=== PATIENT | female | born 1940 | race Caucasian/White ===

== ENCOUNTER 2017-12-21 07:25 | Outpatient (RCR) | payer OTHER, SELFPAY ==
[2017-12-27] MEDS: Normal Saline Flush 10 ML SYR IVP (09:15)
[2017-12-27 09:32] LABS: Abs Immature Grans 0.01 k/cumm (0.0-0.09); Absolute Basophil Count 0.02 k/cumm (0.0-0.2); Absolute Eosinophil Count 0.09 k/cumm (0.0-0.7); Absolute Lymphocyte Count 0.23 k/cumm (1.2-3.4); Absolute Monocyte Count 0.43 k/cumm (0.11-0.7); Absolute Neutrophil Count 1.71 k/cumm (1.2-6.7); Basophils % 0.8; Eosinophils % 3.6; HCT 30.9 % (36.0-46.0); HGB 10.8 g/dL (12.0-15.5); Immature Grans % 0.4; Lymphocytes % 9.2; Mean Corpuscular Hemoglobin 33.5 pg (27.0-33.0); Mean Platelet Volume 11.3 fL (8.0-11.0); Monocytes % 17.3; Neutrophils % 68.7; Platelet Count 153 x1000/uL (130-400); RBC 3.22 m/cumm (4.00-5.20); RBC Distribution Width 17.6 % (11.7-14.6); White Blood Cell Count 2.49 k/cumm (4.4-10.8)
[2017-12-27] MEDS: Heparin 500 UNITS/5 ML SYRINGE IV (09:43)
[2017-12-27 09:46] LABS: ALT 41 U/L (12-78); AST 41 U/L (15-37); Albumin 2.9 g/dL (3.4-5.0); Alkaline Phosphatase 130 U/L (46-116); Anion Gap 12.3 mmol/L (3-11); BUN 15 mg/dL (7-18); Bilirubin, Total 0.4 mg/dL (0.2-1.0); CO2 23.7 mmol/L (21.0-32.0); CREATININE 1.19 mg/dL (0.55-1.02); Calcium 8.2 mg/dL (8.5-10.1); Chloride 106 mmol/L (98-107); Estimated GFR 43.98 (mL/min/1.73m2); Glucose 145 mg/dL (70-100); Potassium 3.3 mmol/L (3.5-5.1); Sodium 142 mmol/L (136-145); Total Protein 5.8 g/dL (6.4-8.2)
[2017-12-28 11:01] LABS: CA 19-9 32 U/mL (<35)
[2018-01-04] MEDS: Heparin 500 UNITS/5 ML SYRINGE IV (07:20)
[2018-01-04] MEDS: Normal Saline Flush 10 ML SYR IVP (07:25)
[2018-01-04 07:50] LABS: Abs Immature Grans 0.02 k/cumm (0.0-0.09); Absolute Basophil Count 0.01 k/cumm (0.0-0.2); Absolute Lymphocyte Count 0.64 k/cumm (1.2-3.4); Absolute Monocyte Count 0.49 k/cumm (0.11-0.7); Absolute Neutrophil Count 1.68 k/cumm (1.2-6.7); Basophils % 0.3; Eosinophils % 3.4; HCT 33.3 % (36.0-46.0); HGB 11.2 g/dL (12.0-15.5); Immature Grans % 0.7; Lymphocytes % 21.8; Mean Corp. HGB Concentration 33.6 g/dL (32.0-36.0); Mean Corpuscular Hemoglobin 32.5 pg (27.0-33.0); Mean Corpuscular Volume 96.5 fL (80-95); Mean Platelet Volume 10.9 fL (8.0-11.0); Monocytes % 16.7; Neutrophils % 57.1; Platelet Count 155 x1000/uL (130-400); RBC 3.45 m/cumm (4.00-5.20); RBC Distribution Width 17.1 % (11.7-14.6); White Blood Cell Count 2.94 k/cumm (4.4-10.8)
[2018-01-04 08:05] LABS: ALT 76 U/L (12-78); AST 87 U/L (15-37); Albumin 2.9 g/dL (3.4-5.0); Alkaline Phosphatase 190 U/L (46-116); Anion Gap 9.7 mmol/L (3-11); BUN 21 mg/dL (7-18); Bilirubin, Total 0.4 mg/dL (0.2-1.0); CO2 25.3 mmol/L (21.0-32.0); CREATININE 0.88 mg/dL (0.55-1.02); Calcium 8.7 mg/dL (8.5-10.1); Chloride 105 mmol/L (98-107); Glucose 122 mg/dL (70-100); Potassium 4.1 mmol/L (3.5-5.1); Sodium 140 mmol/L (136-145); Total Protein 5.9 g/dL (6.4-8.2)
[2018-01-07 11:37] LABS: CA 19-9 43 U/mL (<35)
== END 2018-01-18 ==
LOC: INF 12-27 02:30
PROVIDERS: Nurse Practitioner Adult Health; PCP General Practice; Visit Provider Internal Medicine Hematology & Oncology
DX: C25.0 Malignant neoplasm of head of pancreas (principal); Z45.2 Encounter for adjustment and management of vascular access device
CPT/HCPCS: 36591; 80053; 85025; 86301

== ENCOUNTER 2018-04-18 13:29 | Outpatient (RCR) | payer OTHER, SELFPAY ==
[2018-04-18 14:22] LABS: Abs Immature Grans 0.02 k/cumm (0.0-0.09); Absolute Basophil Count 0.01 k/cumm (0.0-0.2); Absolute Eosinophil Count 0.03 k/cumm (0.0-0.7); Absolute Lymphocyte Count 0.96 k/cumm (1.2-3.4); Absolute Neutrophil Count 4.36 k/cumm (1.2-6.7); Basophils % 0.2; Eosinophils % 0.5; HCT 33.5 % (36.0-46.0); HGB 11.4 g/dL (12.0-15.5); Immature Grans % 0.3; Lymphocytes % 16.6; Mean Corpuscular Hemoglobin 31.1 pg (27.0-33.0); Mean Corpuscular Volume 91.3 fL (80-95); Mean Platelet Volume 11.8 fL (8.0-11.0); Monocytes % 6.9; Neutrophils % 75.5; Platelet Count 266 x1000/uL (130-400); RBC 3.67 m/cumm (4.00-5.20); RBC Distribution Width 13.8 % (11.7-14.6); White Blood Cell Count 5.78 k/cumm (4.4-10.8)
[2018-04-18 14:35] LABS: ALT 149 U/L (12-78); AST 164 U/L (15-37); Albumin 2.5 g/dL (3.4-5.0); Alkaline Phosphatase 149 U/L (46-116); Anion Gap 11.9 mmol/L (3-11); BUN 15 mg/dL (7-18); Bilirubin, Total 0.5 mg/dL (0.2-1.0); CO2 24.1 mmol/L (21.0-32.0); CREATININE 1.04 mg/dL (0.55-1.02); Calcium 8.5 mg/dL (8.5-10.1); Chloride 104 mmol/L (98-107); Estimated GFR 51.38 (mL/min/1.73m2); Glucose 157 mg/dL (70-100); Sodium 140 mmol/L (136-145); Total Protein 5.8 g/dL (6.4-8.2)
[2018-04-18 14:43] LABS: Potassium 2.9 mmol/L (3.5-5.1)
[2018-04-18] MEDS: Normal Saline Flush 10 ML SYR IVP (14:43)
[2018-04-18] MEDS: Heparin 500 UNITS/5 ML SYRINGE IV (14:44)
[2018-04-19 10:39] LABS: CA 19-9 27 U/mL (<35)
== END 2018-04-19 23:59 | disposition home or self-care (01) ==
LOC: INF 13:29
PROVIDERS: PCP General Practice; Visit Provider Internal Medicine Hematology & Oncology
DX: C25.0 Malignant neoplasm of head of pancreas (principal); Z45.2 Encounter for adjustment and management of vascular access device
CPT/HCPCS: 36591; 80053; 85025; 86301

== ENCOUNTER 2018-05-17 01:38 | Outpatient (RCR) | payer OTHER, SELFPAY ==
[2018-05-17] MEDS: Normal Saline Flush 10 ML SYR IVP (10:57)
[2018-05-17] MEDS: Heparin 500 UNITS/5 ML SYRINGE IV (10:57)
[2018-05-17 11:15] LABS: Abs Immature Grans 0.04 k/cumm (0.0-0.09); Absolute Basophil Count 0.02 k/cumm (0.0-0.2); Absolute Eosinophil Count 0.05 k/cumm (0.0-0.7); Absolute Lymphocyte Count 1.04 k/cumm (1.2-3.4); Absolute Neutrophil Count 6.71 k/cumm (1.2-6.7); Basophils % 0.2; Eosinophils % 0.6; HCT 35.8 % (36.0-46.0); HGB 11.8 g/dL (12.0-15.5); Immature Grans % 0.5; Lymphocytes % 12.3; Mean Corpuscular Hemoglobin 30.2 pg (27.0-33.0); Mean Corpuscular Volume 91.6 fL (80-95); Mean Platelet Volume 11.8 fL (8.0-11.0); Monocytes % 7.1; Neutrophils % 79.3; RBC 3.91 m/cumm (4.00-5.20); White Blood Cell Count 8.46 k/cumm (4.4-10.8)
[2018-05-17 11:34] LABS: ALT 40 U/L (12-78); AST 62 U/L (15-37); Albumin 2.7 g/dL (3.4-5.0); Alkaline Phosphatase 96 U/L (46-116); Anion Gap 11.7 mmol/L (3-11); BUN 18 mg/dL (7-18); Bilirubin, Total 0.5 mg/dL (0.2-1.0); CO2 21.3 mmol/L (21.0-32.0); CREATININE 1.14 mg/dL (0.55-1.02); Calcium 8.5 mg/dL (8.5-10.1); Chloride 106 mmol/L (98-107); Estimated GFR 46.22 (mL/min/1.73m2); Glucose 159 mg/dL (70-100); Potassium 3.6 mmol/L (3.5-5.1); Sodium 139 mmol/L (136-145); Total Protein 5.8 g/dL (6.4-8.2)
[2018-05-17 11:38] LABS: Iron 81 ug/dL (50-175); Total Iron Binding Capacity 132 ug/dL (250-450); Transferrin Sat 61 % (15-50)
[2018-05-17 12:37] LABS: Vitamin B12 612 pg/mL (193-986)
[2018-05-17 12:38] LABS: Ferritin > 1000 ng/mL (8-388)
[2018-05-21 03:20] LABS: Vitamin E, Serum 8.8 mg/L (5.5 - 17.0)
[2018-05-22 10:31] LABS: Free Retinol (Vitamin A) 28.7 mcg/dL (32.5-78.0)
== END 2018-05-20 23:59 | disposition home or self-care (01) ==
LOC: INF 01:38
PROVIDERS: Internal Medicine Hematology & Oncology; PCP General Practice; Visit Provider Nurse Practitioner Adult Health
DX: C25.0 Malignant neoplasm of head of pancreas (principal); Z45.2 Encounter for adjustment and management of vascular access device
CPT/HCPCS: 36591; 80053; 82306; 82607; 82728; 83540; 83550; 84446; 84590; 85025

== ENCOUNTER 2018-06-28 00:56 | Outpatient (RCR) | payer OTHER, SELFPAY ==
[2018-06-28] MEDS: Normal Saline Flush 10 ML SYR IVP (09:31)
[2018-06-28] MEDS: Heparin 500 UNITS/5 ML SYRINGE IV (09:38)
[2018-06-28 09:59] LABS: Abs Immature Grans 0.01 k/cumm (0.0-0.09); Absolute Basophil Count 0.01 k/cumm (0.0-0.2); Absolute Eosinophil Count 0.03 k/cumm (0.0-0.7); Absolute Lymphocyte Count 0.67 k/cumm (1.2-3.4); Absolute Neutrophil Count 4.22 k/cumm (1.2-6.7); Basophils % 0.2; Eosinophils % 0.6; HCT 31.2 % (36.0-46.0); HGB 10.3 g/dL (12.0-15.5); Immature Grans % 0.2; Lymphocytes % 12.3; Mean Corpuscular Hemoglobin 31.5 pg (27.0-33.0); Mean Corpuscular Volume 95.4 fL (80-95); Mean Platelet Volume 12.1 fL (8.0-11.0); Monocytes % 9.2; Neutrophils % 77.5; Platelet Count 187 x1000/uL (130-400); RBC 3.27 m/cumm (4.00-5.20); RBC Distribution Width 15.4 % (11.7-14.6); White Blood Cell Count 5.44 k/cumm (4.4-10.8)
[2018-06-28 10:21] LABS: ALT 43 U/L (12-78); AST 71 U/L (15-37); Albumin 2.4 g/dL (3.4-5.0); Alkaline Phosphatase 112 U/L (46-116); Anion Gap 8.5 mmol/L (3-11); BUN 13 mg/dL (7-18); Bilirubin, Total 0.6 mg/dL (0.2-1.0); CO2 25.5 mmol/L (21.0-32.0); CREATININE 0.93 mg/dL (0.55-1.02); Chloride 107 mmol/L (98-107); Estimated GFR 58.46 (mL/min/1.73m2); Glucose 142 mg/dL (70-100); Potassium 3.4 mmol/L (3.5-5.1); Sodium 141 mmol/L (136-145); Total Protein 5.4 g/dL (6.4-8.2)
[2018-07-01 10:41] LABS: CA 19-9 43 U/mL (<35)
== END 2018-07-18 23:59 | disposition home or self-care (01) ==
LOC: INF 00:56
PROVIDERS: PCP General Practice; Visit Provider Internal Medicine Hematology & Oncology
DX: C25.0 Malignant neoplasm of head of pancreas (principal); Z45.2 Encounter for adjustment and management of vascular access device
CPT/HCPCS: 36591; 80053; 85025; 86301

== ENCOUNTER 2018-07-19 00:44 | Outpatient (RCR) | payer OTHER, SELFPAY ==
[2018-07-19] MEDS: Normal Saline Flush 10 ML SYR IVP (12:39)
[2018-07-19] MEDS: Heparin 500 UNITS/5 ML SYRINGE IV (12:40)
[2018-07-19 12:46] LABS: Abs Immature Grans 0.03 k/cumm (0.0-0.09); Absolute Basophil Count 0.01 k/cumm (0.0-0.2); Absolute Eosinophil Count 0.03 k/cumm (0.0-0.7); Absolute Lymphocyte Count 0.54 k/cumm (1.2-3.4); Absolute Monocyte Count 0.49 k/cumm (0.11-0.7); Absolute Neutrophil Count 5.25 k/cumm (1.2-6.7); Basophils % 0.2; Eosinophils % 0.5; HCT 31.7 % (36.0-46.0); HGB 10.6 g/dL (12.0-15.5); Immature Grans % 0.5; Lymphocytes % 8.5; Mean Corp. HGB Concentration 33.4 g/dL (32.0-36.0); Mean Corpuscular Hemoglobin 32.1 pg (27.0-33.0); Mean Corpuscular Volume 96.1 fL (80-95); Mean Platelet Volume 11.7 fL (8.0-11.0); Monocytes % 7.7; Neutrophils % 82.6; Platelet Count 166 x1000/uL (130-400); White Blood Cell Count 6.35 k/cumm (4.4-10.8)
[2018-07-19 13:08] LABS: ALT 76 U/L (12-78); AST 83 U/L (15-37); Albumin 2.4 g/dL (3.4-5.0); Alkaline Phosphatase 109 U/L (46-116); Anion Gap 8.9 mmol/L (3-11); BUN 22 mg/dL (7-18); Bilirubin, Total 0.4 mg/dL (0.2-1.0); CO2 23.1 mmol/L (21.0-32.0); CREATININE 0.69 mg/dL (0.55-1.02); Calcium 8.4 mg/dL (8.5-10.1); Chloride 108 mmol/L (98-107); Glucose 155 mg/dL (70-100); Potassium 4.3 mmol/L (3.5-5.1); Sodium 140 mmol/L (136-145); Total Protein 5.6 g/dL (6.4-8.2)
[2018-07-22 12:46] LABS: CA 19-9 29 U/mL (<35)
== END 2018-08-18 23:59 | disposition home or self-care (01) ==
LOC: INF 00:44
PROVIDERS: PCP General Practice; Visit Provider Internal Medicine Hematology & Oncology
DX: C25.0 Malignant neoplasm of head of pancreas (principal); Z45.2 Encounter for adjustment and management of vascular access device
CPT/HCPCS: 36591; 80053; 85025; 86301

== ENCOUNTER 2018-10-04 01:50 | Outpatient (RCR) | payer OTHER, SELFPAY ==
[2018-10-04] MEDS: Heparin 500 UNITS/5 ML SYRINGE IV (12:08)
[2018-10-04] MEDS: Normal Saline Flush 10 ML SYR IVP (12:09)
[2018-10-04 12:20] LABS: Abs Immature Grans 0.01 k/cumm (0.0-0.09); Absolute Basophil Count 0.02 k/cumm (0.0-0.2); Absolute Eosinophil Count 0.09 k/cumm (0.0-0.7); Absolute Lymphocyte Count 0.84 k/cumm (1.2-3.4); Absolute Monocyte Count 0.41 k/cumm (0.11-0.7); Absolute Neutrophil Count 3.08 k/cumm (1.2-6.7); Basophils % 0.4; HCT 31.8 % (36.0-46.0); HGB 10.6 g/dL (12.0-15.5); Immature Grans % 0.2; Lymphocytes % 18.9; Mean Corp. HGB Concentration 33.3 g/dL (32.0-36.0); Mean Corpuscular Hemoglobin 31.6 pg (27.0-33.0); Mean Corpuscular Volume 94.9 fL (80-95); Mean Platelet Volume 11.1 fL (8.0-11.0); Monocytes % 9.2; Neutrophils % 69.3; Platelet Count 186 x1000/uL (130-400); RBC 3.35 m/cumm (4.00-5.20); RBC Distribution Width 13.4 % (11.7-14.6); White Blood Cell Count 4.45 k/cumm (4.4-10.8)
[2018-10-04 12:40] LABS: ALT 30 U/L (12-78); AST 31 U/L (15-37); Albumin 2.8 g/dL (3.4-5.0); Alkaline Phosphatase 101 U/L (46-116); Anion Gap 11.7 mmol/L (3-11); BUN 15 mg/dL (7-18); Bilirubin, Total 0.2 mg/dL (0.2-1.0); CO2 24.3 mmol/L (21.0-32.0); CREATININE 0.77 mg/dL (0.55-1.02); Calcium 8.5 mg/dL (8.5-10.1); Chloride 105 mmol/L (98-107); Glucose 151 mg/dL (70-100); Potassium 3.6 mmol/L (3.5-5.1); Sodium 141 mmol/L (136-145); Total Protein 6.1 g/dL (6.4-8.2)
[2018-10-07 12:04] LABS: CA 19-9 34 U/mL (<35)
== END 2018-10-18 23:59 | disposition home or self-care (01) ==
LOC: INF 01:50
PROVIDERS: PCP General Practice; Visit Provider Internal Medicine Hematology & Oncology
DX: C25.0 Malignant neoplasm of head of pancreas (principal); Z45.2 Encounter for adjustment and management of vascular access device
CPT/HCPCS: 36591; 80053; 85025; 86301

== ENCOUNTER 2019-02-28 01:42 | Outpatient (RCR) | payer OTHER, SELFPAY ==
[2019-02-28] MEDS: Normal Saline Flush 10 ML SYR IVP (11:50)
[2019-02-28] MEDS: Heparin 500 UNITS/5 ML SYRINGE IV (11:50)
[2019-02-28 12:12] LABS: Abs Immature Grans 0.01 k/cumm (0.0-0.09); Absolute Basophil Count 0.02 k/cumm (0.0-0.2); Absolute Eosinophil Count 0.26 k/cumm (0.0-0.7); Absolute Lymphocyte Count 0.99 k/cumm (1.2-3.4); Absolute Neutrophil Count 3.68 k/cumm (1.2-6.7); Basophils % 0.4; Eosinophils % 4.7; HCT 35.6 % (36.0-46.0); HGB 12.1 g/dL (12.0-15.5); Immature Grans % 0.2; Lymphocytes % 17.8; Mean Corpuscular Hemoglobin 30.9 pg (27.0-33.0); Mean Platelet Volume 10.1 fL (8.0-11.0); Monocytes % 10.8; Neutrophils % 66.1; Platelet Count 261 x1000/uL (130-400); RBC 3.91 m/cumm (4.00-5.20); RBC Distribution Width 13.7 % (11.7-14.6); White Blood Cell Count 5.56 k/cumm (4.4-10.8)
[2019-02-28 12:25] LABS: ALT 31 U/L (14-59); AST 29 U/L (15-37); Albumin 3.5 g/dL (3.4-5.0); Alkaline Phosphatase 115 U/L (46-116); Anion Gap 13.1 mmol/L (3-11); BUN 34 mg/dL (7-18); Bilirubin, Total 0.3 mg/dL (0.2-1.0); CO2 19.9 mmol/L (21.0-32.0); CREATININE 1.09 mg/dL (0.55-1.02); Chloride 107 mmol/L (98-107); Estimated GFR 48.55 (mL/min/1.73m2); Glucose 93 mg/dL (70-100); Potassium 3.9 mmol/L (3.5-5.1); Sodium 140 mmol/L (136-145); Total Protein 7.4 g/dL (6.4-8.2)
[2019-03-03 15:07] LABS: CA 19-9 23 U/mL (<35)
== END 2019-03-20 23:59 | disposition home or self-care (01) ==
LOC: INF 01:42
PROVIDERS: PCP General Practice; Visit Provider Internal Medicine Hematology & Oncology
DX: C25.0 Malignant neoplasm of head of pancreas (principal); Z45.2 Encounter for adjustment and management of vascular access device
CPT/HCPCS: 36591; 80053; 85025; 86301

== ENCOUNTER 2019-04-11 11:45 | Outpatient (RCR) | payer OTHER, SELFPAY ==
[2019-04-11] MEDS: Normal Saline Flush 10 ML SYR 30 ML IVP (15:45)
[2019-04-11] MEDS: Heparin 500 UNITS/5 ML SYRINGE IVP (15:45)
== END 2019-04-19 23:59 | disposition home or self-care (01) ==
LOC: INF 11:45
PROVIDERS: PCP General Practice; Visit Provider Internal Medicine Hematology & Oncology
DX: Z45.2 Encounter for adjustment and management of vascular access device (principal)
CPT/HCPCS: 96523

== ENCOUNTER 2019-06-06 02:35 | Outpatient (RCR) | payer OTHER, SELFPAY ==
[2019-06-06] MEDS: Normal Saline Flush 10 ML SYR IVP (14:33)
[2019-06-06] MEDS: Heparin 500 UNITS/5 ML SYRINGE IV (14:33)
[2019-06-06 14:44] LABS: Abs Immature Grans 0.05 k/cumm (0.0-0.09); Absolute Basophil Count 0.03 k/cumm (0.0-0.2); Absolute Eosinophil Count 0.08 k/cumm (0.0-0.7); Absolute Lymphocyte Count 0.97 k/cumm (1.2-3.4); Absolute Monocyte Count 0.51 k/cumm (0.11-0.7); Absolute Neutrophil Count 4.67 k/cumm (1.2-6.7); Basophils % 0.5; Eosinophils % 1.3; HCT 35.1 % (36.0-46.0); HGB 11.8 g/dL (12.0-15.5); Immature Grans % 0.8 %; Lymphocytes % 15.4; Mean Corp. HGB Concentration 33.6 g/dL (32.0-36.0); Mean Corpuscular Hemoglobin 30.9 pg (27.0-33.0); Mean Corpuscular Volume 91.9 fL (80-95); Mean Platelet Volume 11.1 fL (8.0-11.0); Monocytes % 8.1; Neutrophils % 73.9; Platelet Count 326 x1000/uL (130-400); RBC 3.82 m/cumm (4.00-5.20); RBC Distribution Width 14.5 % (11.7-14.6); White Blood Cell Count 6.31 k/cumm (4.4-10.8)
[2019-06-06 15:05] LABS: ALT 56 U/L (14-59); AST 57 U/L (15-37); Alkaline Phosphatase 126 U/L (46-116); BUN 25 mg/dL (7-18); Bilirubin, Total 0.2 mg/dL (0.2-1.0); CREATININE 0.89 mg/dL (0.55-1.02); Calcium 8.7 mg/dL (8.5-10.1); Chloride 109 mmol/L (98-107); Glucose 124 mg/dL (74-106); Potassium 3.8 mmol/L (3.5-5.1); Sodium 144 mmol/L (136-145); Total Protein 6.5 g/dL (6.4-8.2)
[2019-06-09 09:20] LABS: CA 19-9 28 U/mL (<35)
== END 2019-06-20 23:59 | disposition home or self-care (01) ==
LOC: INF 02:35
PROVIDERS: PCP General Practice; Visit Provider Internal Medicine Hematology & Oncology
DX: C25.0 Malignant neoplasm of head of pancreas (principal); Z45.2 Encounter for adjustment and management of vascular access device
CPT/HCPCS: 36591; 80053; 85025; 86301

== ENCOUNTER 2019-10-17 02:56 | Outpatient (RCR) | payer OTHER, SELFPAY ==
[2019-10-17] MEDS: Normal Saline Flush 10 ML SYR IVP (14:12)
[2019-10-17] MEDS: Heparin 500 UNITS/5 ML SYRINGE IV (14:12)
[2019-10-17 14:19] LABS: Abs Immature Grans 0.05 k/cumm (0.0-0.09); Absolute Basophil Count 0.02 k/cumm (0.0-0.2); Absolute Eosinophil Count 0.11 k/cumm (0.0-0.7); Absolute Neutrophil Count 3.81 k/cumm (1.2-6.7); Basophils % 0.4; HCT 33.8 % (36.0-46.0); HGB 11.2 g/dL (12.0-15.5); Immature Grans % 0.9 %; Lymphocytes % 14.8; Mean Corp. HGB Concentration 33.1 g/dL (32.0-36.0); Mean Corpuscular Hemoglobin 31.5 pg (27.0-33.0); Mean Corpuscular Volume 94.9 fL (80-95); Mean Platelet Volume 10.4 fL (8.0-11.0); Monocytes % 11.1; Neutrophils % 70.8; Platelet Count 213 x1000/uL (130-400); RBC 3.56 m/cumm (4.00-5.20); RBC Distribution Width 13.3 % (11.7-14.6); White Blood Cell Count 5.39 k/cumm (4.4-10.8)
[2019-10-17 14:32] LABS: ALT 50 U/L (14-59); AST 35 U/L (15-37); Albumin 3.3 g/dL (3.4-5.0); Alkaline Phosphatase 136 U/L (46-116); Anion Gap 8.4 mmol/L (3-11); BUN 24 mg/dL (7-18); Bilirubin, Total 0.2 mg/dL (0.2-1.0); CO2 21.6 mmol/L (21.0-32.0); CREATININE 1.17 mg/dL (0.55-1.02); Calcium 8.7 mg/dL (8.5-10.1); Chloride 108 mmol/L (98-107); Estimated GFR 44.62 (mL/min/1.73m2); Glucose 113 mg/dL (74-106); Potassium 4.5 mmol/L (3.5-5.1); Sodium 138 mmol/L (136-145); Total Protein 6.6 g/dL (6.4-8.2)
[2019-10-20 11:53] LABS: CA 19-9 21 U/mL (<35)
== END 2019-10-19 23:59 | disposition home or self-care (01) ==
LOC: INF 02:56
PROVIDERS: PCP General Practice; Visit Provider Internal Medicine Hematology & Oncology
DX: C25.0 Malignant neoplasm of head of pancreas (principal); Z45.2 Encounter for adjustment and management of vascular access device
CPT/HCPCS: 36591; 80053; 85025; 86301

== ENCOUNTER 2019-10-21 04:11 | Outpatient (RCR) | payer OTHER, SELFPAY | END 2019-11-18 23:59 | disposition home or self-care (01) | LOC: INF 04:11 | PROVIDERS: PCP General Practice; Visit Provider Internal Medicine | DX: R69 Illness, unspecified (principal) ==

== ENCOUNTER 2020-01-23 05:11 | Outpatient (RCR) | payer OTHER, SELFPAY ==
[2020-01-23] MEDS: Normal Saline Flush 10 ML SYR IVP (12:01)
[2020-01-23] MEDS: Heparin 500 UNITS/5 ML SYRINGE IV (12:01)
[2020-01-23 12:34] LABS: Abs Immature Grans 0.05 10^3/uL (0.0-0.06); Absolute Basophil Count 0.03 10^3/uL (0.0-0.2); Absolute Eosinophil Count 0.12 10^3/uL (0.0-0.7); Absolute Monocyte Count 0.53 10^3/uL (0.1-0.8); Absolute Neutrophil Count 3.56 10^3/uL (1.2-6.7); Basophils % 0.5; Eosinophils % 2.2; HCT 32.4 % (36.0-46.0); HGB 10.4 g/dL (11.2-15.7); Immature Grans % 0.9; Lymphocytes % 21.9; MCHC 32.1 % (32.0-36.0); MCV 96.7 fL (80-95); MPV 11.5 fL (8.0-11.0); Monocytes % 9.7; Neutrophils % 64.8; Nucleated RBC 0 %; Platelet Count 237 10^3/uL (130-400); RBC 3.35 10^6/uL (3.93-5.22); RDW 13.1 % (11.7-14.6); RDW-SD 46.6 fL; WBC 5.49 10^3/uL (4.4-10.8)
[2020-01-23 12:49] LABS: ALT 61 U/L (14-59); AST 54 U/L (15-37); Albumin 2.8 g/dL (3.4-5.0); Alkaline Phosphatase 162 U/L (46-116); Anion Gap 10.2 mmol/L (3-11); BUN 33 mg/dL (7-18); Bilirubin, Total 0.2 mg/dL (0.2-1.0); CO2 21.8 mmol/L (21.0-32.0); Calcium 8.7 mg/dL (8.5-10.1); Chloride 110 mmol/L (98-107); Estimated GFR 53.48 (mL/min/1.73m2); Glucose 93 mg/dL (74-106); Potassium 4.5 mmol/L (3.5-5.1); Sodium 142 mmol/L (136-145); Total Protein 6.1 g/dL (6.4-8.2)
[2020-01-23 13:48] LABS: Iron 80 ug/dL (50-170); Total Iron Binding Capacity 303 ug/dL (250-450); Transferrin Sat 26 % (15-50)
[2020-01-23 14:15] LABS: Ferritin 160 ng/mL (8-252); Folate > 20.0 ng/mL (8.6-20.0); Vitamin B12 498 pg/mL (193-986)
[2020-01-26 09:34] LABS: CA 19-9 32 U/mL (<35)
== END 2020-02-18 23:59 | disposition home or self-care (01) ==
LOC: INF 05:11
PROVIDERS: Internal Medicine Hematology & Oncology; PCP General Practice; Visit Provider Internal Medicine
DX: C25.0 Malignant neoplasm of head of pancreas (principal); Z45.2 Encounter for adjustment and management of vascular access device; D53.9 Nutritional anemia, unspecified
CPT/HCPCS: 36591; 80053; 82607; 82728; 82746; 83540; 83550; 85025; 86301

== ENCOUNTER 2020-11-12 09:37 | Outpatient (RCR) | payer OTHER, SELFPAY ==
[2020-11-12 10:01] LABS: Abs Immature Grans 0.08 10^3/uL (0.0-0.06); Absolute Basophil Count 0.03 10^3/uL (0.0-0.2); Absolute Eosinophil Count 0.32 10^3/uL (0.0-0.7); Absolute Lymphocyte Count 0.92 10^3/uL (1.2-3.4); Absolute Monocyte Count 0.59 10^3/uL (0.1-0.8); Absolute Neutrophil Count 4.12 10^3/uL (1.2-6.7); Basophils % 0.5; Eosinophils % 5.3; HCT 36.4 % (36.0-46.0); HGB 11.9 g/dL (11.2-15.7); Immature Grans % 1.3; Lymphocytes % 15.2; MCH 30.1 pg (27.0-33.0); MCHC 32.7 % (32.0-36.0); MCV 92.2 fL (80-95); MPV 10.5 fL (8.0-11.0); Monocytes % 9.7; Nucleated RBC 0 %; Platelet Count 260 10^3/uL (130-400); RBC 3.95 10^6/uL (3.93-5.22); RDW 13.3 % (11.7-14.6); RDW-SD 44.8 fL; WBC 6.06 10^3/uL (4.4-10.8)
[2020-11-12 10:20] LABS: ALT 58 U/L (14-59); AST 44 U/L (15-37); Albumin 2.9 g/dL (3.4-5.0); Alkaline Phosphatase 144 U/L (46-116); Anion Gap 8.3 mmol/L (3-11); BUN 29 mg/dL (7-18); Bilirubin, Total 0.3 mg/dL (0.2-1.0); CO2 25.7 mmol/L (21.0-32.0); CREATININE 1.3 mg/dL (0.55-1.02); Calcium 8.7 mg/dL (8.5-10.1); Chloride 106 mmol/L (98-107); Estimated GFR 39.41 (mL/min/1.73m2); Glucose 120 mg/dL (74-106); Potassium 4.4 mmol/L (3.5-5.1); Sodium 140 mmol/L (136-145); Total Protein 6.6 g/dL (6.4-8.2)
[2020-11-15 11:31] LABS: CA 19-9 19 U/mL (<35)
== END 2020-11-17 23:59 | disposition home or self-care (01) ==
LOC: INF 09:37
PROVIDERS: PCP General Practice; Visit Provider Internal Medicine Hematology & Oncology
DX: Z45.2 Encounter for adjustment and management of vascular access device (principal); C25.0 Malignant neoplasm of head of pancreas
CPT/HCPCS: 36591; 80053; 85025; 86301

== ENCOUNTER 2021-04-25 02:05 | Outpatient (RCR) | payer MEDICARE, SELFPAY ==
[2021-04-25] MEDS: Heparin 500 UNITS/5 ML SYRINGE IV (12:42)
[2021-04-25] MEDS: Normal Saline Flush 10 ML SYR IVP (12:42)
[2021-04-25 12:59] LABS: Abs Immature Grans 0.06 10^3/uL (0.0-0.06); Absolute Basophil Count 0.04 10^3/uL (0.0-0.2); Absolute Eosinophil Count 0.08 10^3/uL (0.0-0.7); Absolute Lymphocyte Count 1.57 10^3/uL (1.2-3.4); Absolute Monocyte Count 0.63 10^3/uL (0.1-0.8); Basophils % 0.6; Eosinophils % 1.1; HCT 37.6 % (36.0-46.0); HGB 12.3 g/dL (11.2-15.7); Immature Grans % 0.8; Lymphocytes % 21.9; MCH 30.6 pg (27.0-33.0); MCHC 32.7 % (32.0-36.0); MCV 93.5 fL (80-95); MPV 11.2 fL (8.0-11.0); Monocytes % 8.8; Neutrophils % 66.8; Nucleated RBC 0 %; Platelet Count 318 10^3/uL (130-400); RBC 4.02 10^6/uL (3.93-5.22); RDW 13.2 % (11.7-14.6); RDW-SD 45.2 fL; WBC 7.18 10^3/uL (4.4-10.8)
[2021-04-25 13:22] LABS: ALT 80 U/L (14-59); AST 77 U/L (15-37); Albumin 3.3 g/dL (3.4-5.0); Alkaline Phosphatase 145 U/L (46-116); Anion Gap 12.1 mmol/L (3-11); BUN 26 mg/dL (7-18); Bilirubin, Total 0.3 mg/dL (0.2-1.0); CO2 21.9 mmol/L (21.0-32.0); CREATININE 1.1 mg/dL (0.55-1.02); Calcium 8.8 mg/dL (8.5-10.1); Chloride 107 mmol/L (98-107); Estimated GFR 47.79 (mL/min/1.73m2); Glucose 87 mg/dL (74-106); Potassium 4.3 mmol/L (3.5-5.1); Sodium 141 mmol/L (136-145)
[2021-04-27 10:21] LABS: CA 19-9 19 U/mL (<35)
== END 2021-05-20 23:59 | disposition home or self-care (01) ==
LOC: INF 02:05
PROVIDERS: Nurse Practitioner Family; PCP General Practice; Visit Provider Internal Medicine Medical Oncology
DX: C25.0 Malignant neoplasm of head of pancreas (principal); Z45.2 Encounter for adjustment and management of vascular access device
CPT/HCPCS: 36591; 80053; 85025; 86301

== ENCOUNTER 2021-11-04 13:19 | Outpatient (RCR) | payer MEDICARE, SELFPAY ==
--- OUTSIDE RECORDS SUMMARY | 2021-11-04 13:21 | XMS_ITS ---
:1940 Author Organization [facility] care Address [address] [place] [address] Care Team Providers Name Role Phone AJ GREEN Unavailable Unavailable PROBLEMS Type Condition ICD9-CM Code [id number] Onset Condition SNOMED Code Code Dates Status Problem Type 2 diabetes E11.9 Active 3134 53080 mellitus without complications Problem Generalized R10.84 Active 12070175 6 abdominal pain Problem Malignant neoplasm C25.9 Active 3 36555268 of pancreas, unspecified Problem Allergic rhinitis, J30.9 Active 6 4215162 unspecified Problem Cardiac arrhythmia, I49.9 Active 081082721 unspecified Problem Mixed E78.2 Active 248538034 hyperlipidemia Problem 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 osteoporosis without current pathological fracture Problem Essential (primary) I10 Active 56589623 hypertension Problem Unspecified E46 Active 84821079 2 protein-calorie malnutrition Problem Unspecified I49.40 Active 27947738 premature depolarization Problem Unspecified atrial I48.91 Active 4 9850307 fibrillation Problem Acute on chronic I50.33 Active 442 367611 diastolic (congestive) heart failure ALLERGIES Substance Reaction Event Type Date Status Statins Support fatigue Drug Allergy Feb, Active Reductase Inhibitors Unknown Non Drug Allergy Feb, Act annamaria Metformin HCl diahrrea Drug Allergy Feb, Active ENCOUNTERS Encounter Location Date Diagnosis [address] Mar, [facility] ounter for immunization [facility] [place] [place] Z23 [address] Feb, Aisha lgia, unspecified site [facility] [place] M79.10 [address] Feb, Aisha lgia, unspecified site [facility] [place] M79.10 [place] [address] immunization Z23 [address] September, Gen eralized edema R60.1 [place] [address] Apr, [place] [address] Feb, Ess ential (primary) [facility] [place] [place] hypertension I10 ; [address] Malignant neopla sm of pancreas, unspec ified C25.9 and Encounter fo r immunization Z23 [address] Jun, Uns pecified atrial [facility] [place] fibrillation I48.91 and [address] Essential (prima ry) hypertension I10 [address] Jun, Ess ential (primary) [facility] [place] [place] hypertension I10 [address] Jun, [place] [address] Jun, Acu te on chronic diastolic [facility] [place] [place] (congestive) heart failure [address] I50.33 ; Hypokal emia E87.6 ; Cardiac arrhyt hmia, unspecified I49. 9 and Malignant neopla sm of pancreas, unspec ified C25.[address] May, Uns pecified atrial [facility] [place] [place] fibrillation I48.91 [address] May, Mal ignant neoplasm of [facility] [place] [place] pancreas, un specified C25.9 [address] and Unspecified atrial fibrillation I48 .[address] May, Loc alized edema R60.0 ; [facility] [place] Encounter fo r immunization [address] Z23 ; Shortness of breath R06.02 ; Unspeci fied premature depola rization I49.40 and Unspe cified atrial fibrillat ion I48.[address] Apr, Ess ential (primary) [facility] [place] [place] hypertension I10 ; [address] Generalized abdo mikayla pain R10.84 and Malig nant neoplasm of panc reas, unspecified C25. [address] Apr, [place] [address] Mar, [place] [address] Mar, [place] [address] Feb, Uns pecified protein-calorie [facility] [place] malnutrition E46 and [address] Malignant neopla sm of pancreas, unspec ified C25.[address] Jan, Mal ignant neoplasm of [facility] [place] pancreas, un specified C25.9 [address] Oct, Mal ignant neoplasm of [facility] [place] [place] pancreas, un specified C25.9 [address] Aug, Mal ignant neoplasm of [facility] [place] [place] pancreas, un specified C25.9 [address] Jun, Mal ignant neoplasm of [facility] [place] [place] pancreas, un specified C25.9 [address] Jun, [place] [address] Jun, Mal ignant neoplasm of [facility] [place] [place] pancreas, un specified C25.9 [address] ; Nausea R11.0 ; Generalized abdo mikayla pain R10.84 ; Essenti al (primary) hypert ension I10 ; Mixed hyperlip idemia E78.2 ; Type 2 d iabetes mellitus without complications E1 1.9 and Other fatigue R5 3.[address] Jun, [place] [address] IMMUNIZATIONS Vaccine Route Administration Date Status FLUAD +65 IM Intramuscular Mar 30, 2021 Administered FLUAD +65 IM Intramuscular Mar 09, 2020 Administered FLUAD +65 IM Intramuscular Mar 17, 2019 Administered FLUAD +65 IM Intramuscular Jun 17, 2018 Administered SOCIAL HISTORY Qualifiers Date Former Smoker REASON FOR REFERRAL FUNCTIONAL STATUS PLAN OF CARE Activity Details Follow Up prn Reason: VITAL SIGNS Temperature 97.4 degrees Fahrenheit 2020-03-16 Temperature 96.9 degrees Fahrenheit 2020-03-09 Temperature 97.6 degrees Fahrenheit 2019-10-14 Temperature 96.5 degrees Fahrenheit 2019-03-17 Temperature 98.2 degrees Fahrenheit 2018-07-15 Temperature 96.2 degrees Fahrenheit 2018-06-21 Temperature 97.0 degrees Fahrenheit 2018-06-17 Temperature 98.1 degrees Fahrenheit 2018-04-30 Temperature 97.4 degrees Fahrenheit 2018-03-18 Temperature 98.3 degrees Fahrenheit 2018-01-22 Temperature 97.0 degrees Fahrenheit 2017-10-22 Temperature 96.8 degrees Fahrenheit 2017-08-20 Temperature 97.7 degrees Fahrenheit 2017-07-16 Temperature 96.6 degrees Fahrenheit 2017-07-09 Heart Rate 71 /min 2020-03-16 Heart Rate 65 /min 2020-03-09 Heart Rate 88 /min 2019-10-14 Heart Rate 45 /min 2019-03-17 Heart Rate 76 /min 2018-07-15 Heart Rate 57 /min 2018-06-21 Heart Rate 68 /min 2018-06-17 Heart Rate 80 /min 2018-04-30 Heart Rate 92 /min 2018-03-18 Heart Rate 75 /min 2018-01-22 Heart Rate 95 /min 2017-10-22 Heart Rate 58 /min 2017-08-20 Heart Rate 69 /min 2017-07-16 Heart Rate 72 /min 2017-07-09 Height 60 in 2020-03-16 Height 60 in 2020-03-09 Height 60 in 2019-10-14 Height 60 in 2019-03-17 Height 60 in 2018-07-15 Height 60 in 2018-06-21 Height 60 in 2018-06-17 Height 60 in 2018-04-30 Height 60 in 2018-03-18 Height 60 in 2018-01-22 Height 60 in 2017-10-22 Height 60 in 2017-08-20 Height 60 in 2017-07-16 Height 60 in 2017-07-09 Weight 126 lbs 2020-03-09 Weight 106 lbs 2019-10-14 Weight 105 lbs 2019-03-17 Weight 150 lbs 2018-07-15 Weight 148 lbs 2018-06-21 Weight 148 lbs 2018-06-17 Weight 132 lbs 2018-04-30 Weight 152 lbs 2018-01-22 Weight 153 lbs 2017-10-22 Weight 166 lbs 2017-08-20 Weight 166 lbs 2017-07-16 Weight 170 lbs 2017-07-09 BMI 24.61 kg/m2 2020-03-09 BMI 20.70 kg/m2 2019-10-14 BMI 20.50 kg/m2 2019-03-17 BMI 29.29 kg/m2 2018-07-15 BMI 28.90 kg/m2 2018-06-21 BMI 28.90 kg/m2 2018-06-17 BMI 25.78 kg/m2 2018-04-30 BMI 29.68 kg/m2 2018-01-22 BMI 29.88 kg/m2 2017-10-22 BMI 32.42 kg/m2 2017-08-20 BMI 32.42 kg/m2 2017-07-16 BMI 33.20 kg/m2 2017-07-09 Oximetry 98 % 2020-03-16 Oximetry 98 % 2020-03-09 Oximetry 97 % 2019-10-14 Oximetry 99 % 2019-03-17 Oximetry 97 % 2018-07-15 Oximetry 99 % 2018-06-21 Oximetry 97 % 2018-06-17 Oximetry 95 % 2018-04-30 Oximetry 97 % 2018-03-18 Oximetry 98 % 2018-01-22 Oximetry 99 % 2017-10-22 Oximetry 95 % 2017-08-20 Oximetry 86 % 2017-07-16 Oximetry 98 % 2017-07-09 Blood pressure systolic 114 mm Hg 2020-03-16 Blood pressure diastolic 62 mm Hg 2020-03-16 MEDICATIONS Medication Instructions Dosage Frequency Start End Duration Statu s Date Date Omeprazole 40 MG Orally Once a 1 capsule 24h Active day Spironolactone 50 TAKE 1 90 Active MG TABLET BY MOUTH TWICE DAILY Creon 99632 UNIT Orally one time 1 tablet at Active daily breakfast Tylenol Extra Orally three 2 tablets as 8h Feb, Active Strength 500 MG times a day needed 2019 predniSONE 10 MG Orally Once a 1 1/2 24h 20 Feb, days A ctive day tablets with 2019 food Pancrelipase Orally Once a 959814 61682 24h Active day unit in pm Multi For Her - Orally Once a 1 capsule 24h Active day Furosemide 20 MG TAKE 1 90 Active TABLET BY MOUTH EVERY DAY PROCEDURES Procedure Date Ordered Result Body Site -ELECTROCARDIOGRAM, COMPLETE Jun 17, 2018 Medicare Flu Administration Jun 17, 2018 venipuncture Mar 18, 2018 VACC AIIV4 NO PRSRV 0.5ML IM Mar 30, 2021 URINALYSIS, AUTO, W/O SCOPE Mar 17, 2019 FLU VACCINE ADJUVANT IM Mar 09, 2020 ADMN FLU VAC Mar 17, 2019 ADMN FLU VAC Mar 09, 2020 FLU VACCINE ADJUVANT IM Mar 17, 2019 venipuncture Jul 09, 2017 FLU VACCINE ADJUVANT IM Jun 17, 2018 Medicare Flu Administration Mar 30, 2021 RESULTS Name Result Date Reference Range CT ANGIO CHEST 2018-06-24 CT ABD/PELVIS W CONTRAST 2018-06-24 BNP 2018-06-17 BNP 2 <=100 COMPREHENSIVE METABOLIC PROFILE 2018-06-17 SODIUM 137 136-145 POTASSIUM 2.9 3.5-5.1 CHLORIDE 106 98-111 CO2 23 22-32 CALCIUM 8.3 8.9-10.3 BUN 17 8-26 CREATININE 0.81 0.44-1.00 TOTAL BILIRUBIN 1.0 0.3-1.2 TOTAL PROTEIN 5.0 6.5-8.1 ALBUMIN 2.7 3.5-5.0 ALKALINE PHOS 116 32-92 AST 95 15-41 ALT 46 14-54 A/GAP 8.0 3.0-12.0 B/CR 21.0 8.0-20.0 OSMOLARITY 276 275-295 GLOBULIN 2.3 2.3-3.5 A/G 1.2 1.0-2.5 XR CHEST, 2 VIEWS 2018-06-17 COMPREHENSIVE METABOLIC PANEL 2018-03-18 GLUCOSE 146 65-99 UREA NITROGEN (BUN) 46 7-25 CREATININE 1.60 0.60-0.93 eGFR NON-AFR. NAURUAN 31 > OR = 60 eGFR 36 > OR = 60 BUN/CREATININE RATIO 29 6-22 SODIUM 136 135-146 POTASSIUM 4.8 3.5-5.3 CHLORIDE 99 98-110 CARBON DIOXIDE 20 20-32 CALCIUM 9.7 8.6-10.4 PROTEIN, TOTAL 6.7 6.1-8.1 ALBUMIN 3.9 3.6-5.1 GLOBULIN 2.8 1.9-3.7 ALBUMIN/GLOBULIN RATIO 1.4 1.0-2.5 BILIRUBIN, TOTAL 0.4 0.2-1.2 ALKALINE PHOSPHATASE 137 33-130 AST 33 10-35 ALT 35 6-29 MAGNESIUM 2018-03-18 MAGNESIUM 2.1 1.5-2.5 CBC (INCLUDES DIFF/PLT) 2018-03-18 WHITE BLOOD CELL COUNT TNP COMPREHENSIVE METABOLIC PROFILE 2017-09-26 SODIUM 131 136-145 POTASSIUM 4.7 3.5-5.1 CHLORIDE 97 98-111 CO2 22 22-32 CALCIUM 9.5 8.9-10.3 BUN 22 8-26 CREATININE 1.07 0.44-1.00 TOTAL BILIRUBIN 0.6 0.3-1.2 TOTAL PROTEIN 6.4 6.5-8.1 ALBUMIN 3.2 3.5-5.0 ALKALINE PHOS 153 38-130 AST 60 15-41 ALT 83 14-54 A/GAP 12.0 3.0-12.0 B/CR 20.6 8.0-20.0 OSMOLARITY 268 275-295 GLOBULIN 3.2 2.3-3.5 A/G 1.0 1.0-2.5 COMPREHENSIVE METABOLIC PROFILE 2017-08-30 SODIUM 134 136-145 POTASSIUM 3.8 3.5-5.1 CHLORIDE 97 98-111 CO2 24 22-32 CALCIUM 8.7 8.9-10.3 BUN 28 8-26 CREATININE 1.24 0.44-1.00 TOTAL BILIRUBIN 0.5 0.3-1.2 TOTAL PROTEIN 6.3 6.5-8.1 ALBUMIN 2.9 3.5-5.0 ALKALINE PHOS 82 38-130 AST 148 15-41 ALT 120 14-54 A/GAP 13.0 3.0-12.0 B/CR 22.6 8.0-20.0 OSMOLARITY 281 275-295 GLOBULIN 3.4 2.3-3.5 A/G 0.9 1.0-2.5 COMPREHENSIVE METABOLIC PANEL 2017-07-09 GLUCOSE 113 65-99 UREA NITROGEN (BUN) 31 7-25 CREATININE 1.14 0.60-0.93 eGFR NON-AFR. NAURUAN 47 > OR = 60 eGFR 54 > OR = 60 BUN/CREATININE RATIO 27 6-22 SODIUM 140 135-146 POTASSIUM 4.0 3.5-5.3 CHLORIDE 105 98-110 CARBON DIOXIDE 21 20-31 CALCIUM 9.5 8.6-10.4 PROTEIN, TOTAL 6.7 6.1-8.1 ALBUMIN 3.8 3.6-5.1 GLOBULIN 2.9 1.9-3.7 ALBUMIN/GLOBULIN RATIO 1.3 1.0-2.5 BILIRUBIN, TOTAL 1.6 0.2-1.2 ALKALINE PHOSPHATASE 185 33-130 AST 178 10-35 ALT 175 6-29 AMYLASE 2017-07-09 AMYLASE 84 21-101 TSH, 3RD GENERATION W/REFLEX TO FT4 2017-07-09 TSH W/REFLEX TO FT4 2.24 0.40-4.50 HEMOGLOBIN A1c 2017-07-09 HEMOGLOBIN A1c 4.9 <5.7 LIPASE 2017-07-09 LIPASE 209 7-60 CBC (INCLUDES DIFF/PLT) 2017-07-09 WHITE BLOOD CELL COUNT 9.2 3.8-10.8 RED BLOOD CELL COUNT 3.57 3.80-5.10 HEMOGLOBIN 11.1 11.7-15.5 HEMATOCRIT 33.0 35.0-45.0 MCV 92.4 80.0-100.0 MCH 31.0 27.0-33.0 MCHC 33.5 32.0-36.0 RDW 18.0 11.0-15.0 PLATELET COUNT 387 140-400 MPV 9.7 7.5-12.5 ABSOLUTE NEUTROPHILS 6578 1999-7449 ABSOLUTE LYMPHOCYTES [phone] ABSOLUTE MONOCYTES 405 200-950 ABSOLUTE EOSINOPHILS 368 15-500 ABSOLUTE BASOPHILS 28 0-200 NEUTROPHILS 71.5 LYMPHOCYTES 19.8 MONOCYTES 4.4 EOSINOPHILS 4.0 BASOPHILS 0.3 LIPID PANEL 2017-07-09 CHOLESTEROL, TOTAL 264 <200 HDL CHOLESTEROL 35 >50 TRIGLYCERIDES 249 <150 LDL-CHOLESTEROL 185 CHOL/HDLC RATIO 7.5 <5.0 NON HDL CHOLESTEROL 229 <130 REASON FOR VISIT dami, Medical Review, follow up right hip pain, Referral to Megan Angel hip,FLUAD, Follow up, follow up, refills, follow up & fluad , Follow up, follow up, f/u Dr. Lloyd's visit, missed call from Dr. Bashir, follow-up, [place] [facility] f/u [place], CT order, water retension, flu shot, follow-up, discharge?, follow up, flu shot?, Physical therapy, ED follow up, follow up, follow up panc cancer, fol low up pancreatic cancer, follow up labs, Dr Taylor, [employer] get acquainted-? dx pancreatic cancer Insurance Providers [facility] Health Member Patient Patient Patient Patient Patient Subscriber Subscriber Subscriber Group Insurance Plan Plan Plan Plan ID Relationship Address Phone Name Date of ID Name Date of No Type Insurance Insurance Insurance Coverage to Subscriber Address Phone Name Dates [facility] [phone] [facility] self Stacy [id number] Medicare Healthcare 10 Medicare Melia Complete Claims Div Complete [address] [address] [facility] [address] MEDICARE NATIONAL [phone] MEDICARE self Stacy [phone] [id number] [place] [address] [facility] [address] MEDICARE NATIONAL [phone] MEDICARE self Stacy [phone] [id number] [place] 04 [place] [address] [facility] [id number]
[2021-11-04] MEDS: Normal Saline Flush 10 ML SYR IVP (13:46)
[2021-11-04] MEDS: Heparin 500 UNITS/5 ML SYRINGE IVP (13:46)
[2021-11-04 13:54] LABS: Abs Immature Grans 0.02 10^3/uL (0.0-0.06); Absolute Basophil Count 0.03 10^3/uL (0.0-0.2); Absolute Eosinophil Count 0.07 10^3/uL (0.0-0.7); Absolute Lymphocyte Count 1.13 10^3/uL (1.2-3.4); Absolute Monocyte Count 0.44 10^3/uL (0.1-0.8); Basophils % 0.4; HCT 37.7 % (36.0-46.0); HGB 12.6 g/dL (11.2-15.7); Immature Grans % 0.3; Lymphocytes % 16.6; MCH 30.8 pg (27.0-33.0); MCHC 33.4 % (32.0-36.0); MCV 92 fL (80-95); MPV 12.7 fL (8.0-11.0); Monocytes % 6.5; Neutrophils % 75.2; Platelet Count 217 10^3/uL (130-400); RBC 4.09 10^6/uL (3.93-5.22); RDW 14.4 % (11.7-14.6); RDW-SD 48.4 fL; WBC 6.79 10^3/uL (4.4-10.8)
[2021-11-04 14:08] LABS: ALT 77 U/L (14-59); AST 90 U/L (15-37); Alkaline Phosphatase 136 U/L (46-116); Anion Gap 10.4 mmol/L (3-11); BUN 16 mg/dL (7-18); Bilirubin, Total 0.4 mg/dL (0.2-1.0); CO2 24.6 mmol/L (21.0-32.0); CREATININE 0.8 mg/dL (0.55-1.02); Calcium 8.7 mg/dL (8.5-10.1); Chloride 110 mmol/L (98-107); Glucose 115 mg/dL (74-106); Potassium 3.8 mmol/L (3.5-5.1); Sodium 145 mmol/L (136-145); Total Protein 6.5 g/dL (6.4-8.2)
[2021-11-07 10:00] LABS: CA 19-9 20 U/mL (<35)
== END 2021-11-17 23:59 | disposition home or self-care (01) ==
LOC: INF 13:19
PROVIDERS: PCP General Practice; Visit Provider Internal Medicine Hematology & Oncology
DX: C25.0 Malignant neoplasm of head of pancreas (principal); Z45.2 Encounter for adjustment and management of vascular access device
CPT/HCPCS: 36591; 80053; 85025; 86301

== ENCOUNTER 2022-04-28 01:15 | Outpatient (RCR) | payer MEDICARE, SELFPAY ==
[2022-04-28] MEDS: Normal Saline Flush 10 ML SYR IVP (14:18)
[2022-04-28] MEDS: Heparin 500 UNITS/5 ML SYRINGE IV (14:19)
[2022-04-28 14:35] LABS: Abs Immature Grans 0.03 10^3/uL (0.0-0.06); Absolute Basophil Count 0.05 10^3/uL (0.0-0.2); Absolute Eosinophil Count 0.07 10^3/uL (0.0-0.7); Absolute Lymphocyte Count 1.15 10^3/uL (1.2-3.4); Absolute Monocyte Count 0.55 10^3/uL (0.1-0.8); Basophils % 0.8; Eosinophils % 1.1; HCT 39.9 % (36.0-46.0); HGB 12.9 g/dL (11.2-15.7); Immature Grans % 0.5; Lymphocytes % 17.3; MCH 30.8 pg (27.0-33.0); MCHC 32.3 % (32.0-36.0); MCV 95 fL (80-95); MPV 12.4 fL (8.0-11.0); Monocytes % 8.3; Platelet Count 267 10^3/uL (130-400); RBC 4.19 10^6/uL (3.93-5.22); RDW 13.6 % (11.7-14.6); RDW-SD 47.7 fL; WBC 6.65 10^3/uL (4.4-10.8)
[2022-04-28 14:55] LABS: ALT 107 U/L (14-59); AST 101 U/L (15-37); Albumin 3.2 g/dL (3.4-5.0); Alkaline Phosphatase 135 U/L (46-116); BUN 14 mg/dL (7-18); Bilirubin, Total 0.3 mg/dL (0.2-1.0); CREATININE 0.7 mg/dL (0.55-1.02); Calcium 8.5 mg/dL (8.5-10.1); Chloride 109 mmol/L (98-107); Estimated GFR 86.83 (mL/min/1.73m2); Glucose 114 mg/dL (74-106); Sodium 142 mmol/L (136-145); Total Protein 6.5 g/dL (6.4-8.2)
[2022-05-01 11:11] LABS: CA 19-9 21 U/mL (<35)
== END 2022-05-20 23:59 | disposition home or self-care (01) ==
LOC: INF 01:15
PROVIDERS: PCP General Practice; Visit Provider Internal Medicine Hematology & Oncology
DX: C25.0 Malignant neoplasm of head of pancreas (principal); Z45.2 Encounter for adjustment and management of vascular access device
CPT/HCPCS: 36591; 80053; 85025; 86301

== ENCOUNTER 2022-08-08 02:05 | Outpatient (RCR) | payer MEDICARE, SELFPAY ==
[2022-08-08] MEDS: Normal Saline Flush 10 ML SYR IVP (13:12)
[2022-08-08] MEDS: Heparin 500 UNITS/5 ML SYRINGE IV (13:12)
== END 2022-08-18 23:59 | disposition home or self-care (01) ==
LOC: INF 02:05
PROVIDERS: PCP General Practice; Visit Provider Internal Medicine Hematology & Oncology
DX: Z45.2 Encounter for adjustment and management of vascular access device (principal)
CPT/HCPCS: 96523

== ENCOUNTER 2022-10-25 10:30 | Outpatient (RCR) | payer MEDICARE, SELFPAY ==
[2022-10-25] MEDS: Heparin 500 UNITS/5 ML SYRINGE (10:44)
[2022-10-25] MEDS: Normal Saline Flush 10 ML SYR IVP (10:45)
[2022-10-25 11:02] LABS: Abs Immature Grans 0.04 10^3/uL (0.0-0.06); Absolute Basophil Count 0.04 10^3/uL (0.0-0.2); Absolute Eosinophil Count 0.06 10^3/uL (0.0-0.7); Absolute Lymphocyte Count 1.02 10^3/uL (1.2-3.4); Absolute Monocyte Count 0.48 10^3/uL (0.1-0.8); Absolute Neutrophil Count 4.24 10^3/uL (1.2-6.7); Basophils % 0.7; HCT 36.7 % (36.0-46.0); HGB 11.9 g/dL (11.2-15.7); Immature Grans % 0.7; Lymphocytes % 17.3; MCH 31.7 pg (27.0-33.0); MCHC 32.4 % (32.0-36.0); MCV 98 fL (80-95); MPV 11.6 fL (8.0-11.0); Monocytes % 8.2; Neutrophils % 72.1; Platelet Count 239 10^3/uL (130-400); RBC 3.75 10^6/uL (3.93-5.22); RDW 13.6 % (11.7-14.6); RDW-SD 49.1 fL; WBC 5.88 10^3/uL (4.4-10.8)
[2022-10-25 11:24] LABS: ALT 82 U/L (14-59); AST 72 U/L (15-37); Alkaline Phosphatase 137 U/L (46-116); BUN 23 mg/dL (7-18); Bilirubin, Total 0.3 mg/dL (0.2-1.0); CREATININE 0.8 mg/dL (0.55-1.02); Calcium 8.3 mg/dL (8.5-10.1); Chloride 110 mmol/L (98-107); Estimated GFR 73.52 (mL/min/1.73m2); Glucose 182 mg/dL (74-106); Potassium 4.2 mmol/L (3.5-5.1); Sodium 142 mmol/L (136-145); TSH 2.84 uIU/mL (0.36-3.74); Total Protein 6.1 g/dL (6.4-8.2)
[2022-10-27 09:59] LABS: CA 19-9 23 U/mL (<35)
== END 2022-11-17 23:59 | disposition home or self-care (01) ==
LOC: INF 10:30
PROVIDERS: PCP General Practice; Visit Provider Internal Medicine Hematology & Oncology
DX: R53.83 Other fatigue (principal); C25.0 Malignant neoplasm of head of pancreas; Z45.2 Encounter for adjustment and management of vascular access device
CPT/HCPCS: 36591; 80053; 84443; 85025; 86301